=== PATIENT | female | born 1995 | race Caucasian/White ===

== ENCOUNTER → 2021-03-23 | Outpatient (CLI) | payer OTHER ==
[~2021-03-23] MED LIST: PROHANCE 279.3MG/ML 5ML VIAL As Ordered ONE
--- NOTE | 2021-03-23 11:04 | REP ---
INDICATION: VAGINAL HEMATOMA AFTER DELIVERY. COMPARISON: None. TECHNIQUE: Multiple sequences obtained in the axial, coronal and sagittal planes prior to and following the intravenous administration of 10 mL ProHance. FINDINGS: Uterine length is approximately 7.8 cm. Endometrial thickness is approximately 8 mm. There is an IUD in the endometrial canal. Urinary bladder is not well distended. The ovaries are normal in appearance, both containing multiple subcentimeter follicles. There is moderate free fluid in the posterior pelvis. Along the left outer vaginal wall and anterolateral rectum there is a hematoma measuring approximately 2.5 x 3.6 x 3.1 cm. There is no pelvic mass or adenopathy. IMPRESSION: Along the left outer vaginal wall and anterolateral rectum there is a hematoma measuring approximately 2.5 x 3.6 x 3.1 cm. There is moderate free fluid in the posterior pelvis. <Electronically signed by Mike Dailey > 03/23/21 1100
== END ==
LOC: M RAD 07:50
PROVIDERS: ATTEND Obstetrics & Gynecology
DX: N89.8 Other specified noninflammatory disorders of vagina (principal)

== ENCOUNTER → 2021-06-29 | Outpatient (CLI) | payer OTHER ==
[~2021-06-29] MED LIST changes: +PROHANCE 279.3MG/ML 15ML VIAL As Ordered ONE; -PROHANCE 279.3MG/ML 5ML VIAL As Ordered ONE
== END ==
LOC: M RAD 14:23
PROVIDERS: ATTEND Obstetrics & Gynecology
DX: O72.2 Delayed and secondary postpartum hemorrhage (principal)